=== PATIENT | female | born 1965 | race African-American/Black ===

== ENCOUNTER 2018-01-31 10:31 | Emergency (ER) | payer BC, OTHER ==
[~2018-01-31] VITALS: Ht 170.2 cm; Wt 93.0 kg
[2018-01-31 10:37] VITALS: BP 159/93
[2018-01-31 13:07] LABS: BASOPHILS % 0.9 % (0.0-2.0); EOSINOPHILS % 3.6 % (0.0-5.0); HEMATOCRIT. 40.5 % (36.0-48.0); HEMOGLOBIN. 13.6 g/dL (12.0-16.0); LYMPHOCYTES % 37.3 % (20.0-50.0); MEAN CORPUSCULAR HEMOGLOBIN 30.6 pg (28.0-32.0); MEAN CORPUSCULAR VOLUME 90.9 fL (81.0-99.0); MONOCYTES % 6.4 % (2.0-8.0); NEUTROPHILS % 51.8 % (40.0-76.0); PLATELET 266 x1000/uL (130-400); RED BLOOD CELL COUNT 4.46 mill/uL (4.2-5.4); RED CELL DISTRIBUTION WIDTH 13.5 % (11.6-14.6)
[2018-01-31 13:15] LABS: INR 1.1; PROTHROMBIN TIME 10.9 sec (9.4-11.6)
[2018-01-31 13:20] LABS: CHLORIDE 106 mEq/L (98-107)
[2018-01-31 13:25] LABS: TROPONIN I < 0.02 ng/mL (0.00-0.04)
== END 2018-01-31 15:17 | disposition left against medical advice (07) ==
LOC: ER 11:22
DX: R07.9 Chest pain, unspecified (principal); I10 Essential (primary) hypertension; R45.84 Anhedonia
CPT/HCPCS: 36415; 80053; 83880; 84484; 85025; 85610; 93005; 99285

== ENCOUNTER 2024-10-10 10:48 | Emergency (ER) | payer OTHER ==
[~2024-10-10] VITALS: Ht 175.3 cm; Wt 100.0 kg
[2024-10-10 11:04] VITALS: O2SAT 100
[2024-10-10 11:59] VITALS: TEMP 36.39180
[2024-10-10 12:31] LABS: BASOPHILS % 0.6 % (0.0-2.0); EOSINOPHILS % 5.5 % (0.0-5.0); HEMATOCRIT. 41.4 % (36.0-48.0); HEMOGLOBIN. 13.6 g/dL (12.0-16.0); LYMPHOCYTES % 26.8 % (20.0-50.0); MEAN CORPUSCULAR HGB CONC 32.9 g/dL (31.0-37.0); MEAN CORPUSCULAR VOLUME 94.2 fL (81.0-99.0); MEAN PLATELET VOLUME 9.9 fl (7.4-10.4); MONOCYTES % 7.5 % (2.0-8.0); NEUTROPHILS % 59.6 % (40.0-76.0); PLATELET 270 x1000/uL (130-400); RED BLOOD CELL COUNT 4.39 mill/uL (4.2-5.4); RED CELL DISTRIBUTION WIDTH 14.1 % (11.6-14.6); WHITE BLOOD COUNT 5.3 x1000/uL (4.5-11.0)
[2024-10-10 12:46] LABS: CHLORIDE 107 mEq/L (98-107); POTASSIUM 4.5 mEq/L (3.5-5.1); SODIUM 141 mEq/L (136-145)
[2024-10-10 12:47] LABS: CARBON DIOXIDE 25 mEq/L (21-32)
[2024-10-10 12:48] LABS: CALCIUM 10.4 mg/dL (8.7-10.4)
[2024-10-10 12:52] LABS: CREATININE 0.8 mg/dL (0.6-1.0); GLUCOSE 80 mg/dL (70-105)
[2024-10-10 12:53] LABS: UREA NITROGEN BLOOD 13 mg/dL (9-23)
[2024-10-10 12:54] LABS: TROPONIN I HIGH SENSITIVITY 7 ng/L (3.0-34)
[2024-10-10] MEDS ORDERED: AMOX1TAB16 MT (13:04)
[2024-10-10 13:12] VITALS: BP 128/72; PULSE 52; RESP 16; O2SAT 100
== END 2024-10-10 13:35 | disposition home or self-care (01) ==
LOC: ER 12:11
DX: I16.0 Hypertensive urgency (principal); I10 Essential (primary) hypertension; R51.9 Headache, unspecified; Z91.041 Radiographic dye allergy status
CPT/HCPCS: 80048; 85025; 84484; 36415; 71045; 99284; Z7610 ×3